=== PATIENT | male | born 1955 | race Caucasian/White ===

== ENCOUNTER 2017-09-12 18:56 | Emergency (ER) | payer BC ==
[2017-09-12 19:25] VITALS: BP 133/66
--- NOTE | 2017-09-12 19:30 | UC ---
Respiratory Complaint HPI - HPI Summary HPI Summary: Pt presents with 3 weeks of a dry cough and intermittent fevers. He has been taking dayquill and nyquill for his symptoms with mild relief at times. He has not taken his temperature, but says that he will wake up sweating in the middle of the night and feel cold. Over the last 3-4 days his cough has subsided and he thought he was getting better. Last week he only felt feverish for 2 days off and on. He is still working and is very active - plays tennis multiple times a week. He tells me that about 8 months ago, he had an W[place] and underwent cardiac cath with stent placement. He denies sore throat, sinus symptoms, cough , SOB, chest pain, palpitations, abdominal pain, n/v/d/c, fatigue, weakness, or body aches. - History of Current Complaint Chief Complaint: UCGeneralIllness Stated Complaint: FEVER, AND CHILLS Hx Obtained From: Patient Timing: Constant Pain Intensity: 0 Character: Cough: Nonproductive - Allergies/Home Medications Allergies/Adverse Reactions: Allergies Allergy/AdvReac Type Severity Reaction Status Date / Time No Known Allergies Allergy Verified 09/12/17 19:26 Home Medications: Home Medications Atorvastatin* [Lipitor*] 20 mg PO 1700 09/12/17 [History Confirmed 09/12/17] Clopidogrel TAB* [Plavix TAB*] 75 mg PO DAILY 09/12/17 [History Confirmed ] PMH/Surg Hx/FS Hx/Imm Hx Previously Healthy: Yes Endocrine History: Dyslipidemia Cardiovascular History: Myocardial Infarction - Surgical History Surgical History: None - Family History Known Family History: Positive: Cardiac Disease - Social History Occupation: Employed Full-time Lives: With Family Alcohol Use: Rare Substance Use Type: None Smoking Status (MU): Never Smoked Tobacco Review of Systems Constitutional: Fever Skin: Negative Eyes: Negative ENT: Negative Respiratory: Negative Cardiovascular: Negative Gastrointestinal: Negative Motor: Negative Neurovascular: Negative Musculoskeletal: Negative Neurological: Negative Psychological: Negative All Other Systems Reviewed And Are Negative: Yes Physical Exam Triage Information Reviewed: Yes Appearance: Well-Appearing, No Pain Distress, Well-Nourished Vital Signs: Initial Vital Signs Temp 101.1 F 09/12/17 19:20 Pulse 97 09/12/17 19:20 Resp 16 09/12/17 19:20 BP 133/66 09/12/17 19:20 Pulse Ox 100 09/12/17 19:20 Vital Signs Reviewed: Yes Eyes: Positive: Conjunctiva Clear. Negative: Conjunctiva Inflamed, Discharge ENT: Positive: Hearing grossly normal, Pharynx normal, TMs normal, Uvula midline. Negative: Pharyngeal erythema, Nasal congestion, Nasal drainage, TM bulging, TM dull, TM red, Tonsillar swelling, Tonsillar exudate, Hoarse voice, Sinus tenderness Neck: Positive: Supple, Nontender, No Lymphadenopathy Respiratory: Positive: Chest non-tender, Lungs clear, Normal breath sounds, No respiratory distress, No accessory muscle use Cardiovascular: Positive: RRR, No Murmur, Pulses Normal, Other: - No JVD or carotid bruit Abdomen Description: Positive: Nontender, No Organomegaly, Soft. Negative: Bruit, CVA Tenderness (R), CVA Tenderness (L), Distended, Guarding, Pulsatile Mass Bowel Sounds: Positive: Present Neurological: Positive: Alert. Negative: Fatigued Psychological: Positive: Age Appropriate Behavior Skin: Negative: rashes, significant lesion(s) UC Diagnostic Evaluation - Laboratory O2 Sat by Pulse Oximetry: 100 Respiratory Course/Dx - Course Course Of Treatment: POC flu negative. I suspect his fever could be from an unknown viral illness, but given his recent cardiac history - I spoke with Dr. Chase and we agreed to draw a CBC, CMP, and blood cultures. I will start him on an antibiotic to cover for potential infectious process and have him f/u with his PCP within 1 week. - Differential Dx/Diagnosis Provider Diagnoses: Fever. Cough Discharge - Discharge Plan Condition: Stable Disposition: HOME Prescriptions: Amoxicillin/Clavulanate TAB* [Augmentin TAB 875*] 875 mg PO BID #20 tab Patient Education Materials: Fever in Adults (ED) Referrals: No Primary Care Phys,NOPCP [Primary Care Provider] - Additional Instructions: If you develop a worsening fever, shortness of breath, chest pain, new or worsening symptoms - please call your PCP or go to the ED. Your blood pressure was high at todays visit. Please see your primary provider within 4 weeks for recheck and re-evaluation.
[2017-09-12] MEDS ORDERED: Amoxicillin/Clavulanate TAB* 875 MG PO ONE (20:43)
[2017-09-12] MEDS ORDERED: diPHENhydraMINE PO* 25 MG PO ONE (20:47)
== END 2017-09-12 21:10 | disposition home or self-care (01) ==
LOC: UCEAST 18:56
DX: R50.9 Fever, unspecified (principal); R05 Cough; R03.0 Elevated blood-pressure reading, without diagnosis of hypertension; I25.2 Old myocardial infarction; Z95.5 Presence of coronary angioplasty implant and graft; E78.5 Hyperlipidemia, unspecified
CPT/HCPCS: 87502; 99202; A9270-GY; G0463

== ENCOUNTER 2019-02-21 07:41 | Emergency (ER) | payer BC ==
--- OUTSIDE RECORDS SUMMARY | 2019-02-21 08:09 | XMS REPORT | Continuity of Care Document ---
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 Payers Date Identification Numbers Payment Provider Subscriber Effective: 2014 Policy Number: [id number] Dannielle Wasserman PayID: [id number] [address] [place] [id number] Problems Active Problems Provider Date Essential hypertension Juan David Iniguez M.D., Onset: 08/10/2018 [facility] Aortic valve disorder Juan David Iniguez M.D., Onset: 08/10/2018 [facility] 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., 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 angina [facility] pectoris Hyperlipidemia Juan David Iniguez M.D., Onset: 03/08/2017 [facility] Mixed hyperlipidemia Viridiana Gonzales, MSN, Onset: 05/03/2018 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 Social History Type Date Description Comments Sex Unknown Lives With Diet Inadequate intake of salt 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 Independent with all ADL's Tobacco Use Start: Unknown Never Smoked Cigarettes Smoking Status Reviewed: 02/16/19 Never Smoked Cigarettes ETOH Use Rarely consumes alcohol Allergies, Adverse Reactions, Alerts Active Allergies Reaction Severity Comments Date Amoxicillin swollen lip 08/10/2018 Inactive Allergies NKDA 03/08/2017 Medications Active Medications SIG Qnty Indications Ordering Provider Date Lipitor 1 by mouth every 90tabs E78.5 Gonzales, Viridiana 05/03/2018 80mg Tablets night at bedtime NICO Angulo, 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 INSTRU[employer] Losartan Potassium 1 by mouth every 90tabs I10 Gonzales, Viridiana 05/03/2018 50mg day NICO Angulo, Tablets 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 INSTRU[employer] Nitrostat 1 tab sl every 5 25tabs Gonzales, Viridiana 05/03/2018 0.4mg Tablets min x3 chest pain NICO Angulo, Sub 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 INSTRUCTOR Amlodipine Besylate 1 by mouth every 90tabs Juan David Iniguez 03/16/2018 5mg day Walter Lopez, [facility] Tablets Aspirin Adult Low 1 by mouth every Unknown Dose day 81mg Tablets DR Plavix 1 by mouth every 90tabs Juan David Iniguez 75mg Tablets day Walter Lopez, [facility] History Medications Lipitor 1 by mouth Unknown - 10mg Tablets every day 03/08/2017 Amlodipine Besylate 1 by mouth Unknown - 5mg every day Unknown Tablets Metoprolol Tartrate 1 by mouth Unknown - 25mg twice a day 03/08/2017 Tablets Lipitor tab by mouth 90tabs E78.5 Juan David Iniguez - 20mg Tablets every day Walter Lopez, [facility] 05/03/2018 Nitroglycerin apply 1 patch Unknown - 0.4mg/HR at dinner time Unknown Patches 24HR on for 12 hours and off for 12 hours Vital Signs Date Vital Result Comment 02/16/2019 9:39am BP Systolic Sitting Left Arm 130 mmHg BP Diastolic Sitting Left Arm 70 mmHg Heart Rate 64 /min Respiratory Rate 16 /min Height 70 inches 5'10" Weight 166.00 lb BMI (Body Mass Index) 23.8 kg/m2 BSA (Body Surface Area) 1.93 m2 [place] body weight in kilograms 75 kg O2 % BldC Oximetry 98 % Ejection Fraction 60% 08/10/2018 11:30am BP Systolic Sitting Left Arm 144 mmHg BP Diastolic Sitting Left Arm 88 mmHg Heart Rate 60 /min Respiratory Rate 18 /min Height 70 inches 5'10" Weight 170.00 lb BMI (Body Mass Index) 24.4 kg/m2 BSA (Body Surface Area) 1.95 m2 [place] body weight in kilograms 75 kg O2 % BldC Oximetry 98 % Ora 05/03/2018 2:14pm BP Systolic Sitting Right Arm 144 mmHg BP Diastolic Sitting Right Arm 82 mmHg Heart Rate 69 /min Respiratory Rate 16 /min Height 70 inches 5'10" Weight 165.00 lb BMI (Body Mass Index) 23.7 kg/m2 BSA (Body Surface Area) 1.92 m2 [place] body weight in kilograms 75 kg O2 % BldC Oximetry 98 % Room air 03/08/2018 8:59am BP Systolic Sitting Left Arm 118 mmHg BP Diastolic Sitting Left Arm 86 mmHg Heart Rate 68 /min Respiratory Rate 18 /min Height 70 inches 5'10" Weight 163.00 lb BMI (Body Mass Index) 23.4 kg/m2 BSA (Body Surface Area) 1.91 m2 [place] body weight in kilograms 75 kg O2 % BldC Oximetry 95 % 03/08/2017 1:04pm BP Systolic Sitting Right Arm 118 mmHg BP Diastolic Sitting Right Arm 62 mmHg Heart Rate 56 /min Respiratory Rate 16 /min Height 70 inches 5'10" Weight 161.00 lb BMI (Body Mass Index) 23.1 kg/m2 BSA (Body Surface Area) 1.90 m2 [place] body weight in kilograms 75 kg Results Test Date Facility Test Result H/L Range Note LDL Cholesterol 08/02/2018 [facility] Cholesterol 140 mg/dL <200 1, 2 Profile [address] [place], [place] [id number] [phone] Triglycerides 46 mg/dL <150 3 HDL Cholesterol 53 mg/dL >40 4 LDL-Cholesterol 78 mg/dL < 100 5 Comprehensive 08/02/2018 [facility] Glucose 93 mg/dL Normal 74-106 Metabolic Panel [address] [place], [place] [id number] [phone] BUN 20 mg/dL High 7-18 Creatinine 1.1 mg/dL Normal 0.6-1.3 Glom Filtration Rate, Estimate >60 mL/min >60 If >60 mL/min >60 6 BUN/Creat 18.1 ratio Sodium 138 mmol/L Normal 136-145 Potassium 4.1 mmol/L Normal 3.5-5.1 Chloride 106 mmol/L Normal 98-107 Carbon Dioxide 27 mmol/L Normal 21-32 Anion Gap 5 mEq/L Low 8-16 Calcium 8.3 mg/dL Low 8.5-10.1 Total Protein 7.4 g/dL Normal 6.4-8.2 Albumin 3.8 g/dL Normal 3.4-5.0 Globulin 3.6 g/dL Normal 1.9-4.3 Alb/Glob 1.1 ratio Bilirubin,Total 0.5 mg/dL Normal 0.2-1.0 Sgot/Ast 30 U/L Normal 15-37 SGPT/Alt 48 U/L Normal 12-78 Alkaline Phosphatase 71 U/L Normal 45-117 CBC W/Automated 08/02/2018 [facility] White Blood 4.7 K/uL Normal 3.4-10.[address] [place] [address] [phone] Red Blood Count 4.77 M/uL Normal 4.20-5.80 Hemoglobin 14.5 gm/dL Normal 12.8-17.0 Hematocrit 43.3 % Normal 38.0-48.0 Mean Cell Volume 90.8 fl Normal 80.0-96.0 Mean Corpuscular HGB 30.4 pg Normal 27.0-33.0 Mean Corpuscular HGB Conc 33.5 g/dL Normal 31.7-36.0 Platelet Count 244 K/uL Normal 155-360 Red Cell Distri Width SD 45.3 fl Normal 36-51 Red Cell Distri Width %CV 14.0 % Normal 11.6-15.8 Mean Platelet Volume 9.6 fL Normal 6.6-10.6 Neut% 57.9 % Normal 33.0-73.0 Lymph % 29.0 % Normal 20.0-42.0 [place] % 9.2 % Normal 0.0-10.0 Eo% 3.7 % Normal 0.0-6.6 Bas% 0.2 % Normal 0.0-1.1 Neut# 2.69 K/uL Normal 1.8-7.0 Lymph # 1.35 K/uL Normal 1.0-4.0 [place] # 0.43 K/uL Normal 0.0-0.8 Eos # 0.17 K/uL Normal 0.0-0.5 Baso # 0.01 K/uL Normal 0.0-0.1 LDL Cholesterol 03/28/2018 [facility] Cholesterol 176 mg/dL <200 7, [address] [place] [address] [phone] Triglycerides 125 mg/dL <150 9 HDL Cholesterol 47 mg/dL >40 10 LDL-Cholesterol 104 mg/dL < 100 11 Reflex add FT3? Y Reflex add FT4? Y TSH Reflex 03/28/2018 [facility] Thyroid Stim 1.68 uIU/mL Normal 0.30-4.20 FT4 And/Or [address] Hormone FT3 [place] [address] [phone] Reflex add FT3? Y Reflex add FT4? Y Basic Metabolic Panel - Daily 02/23/2017 N2N/CCD Import Anion Gap 8 mmol/L 7 - 16 BUN/Creatinine Ratio 15.8 Ratio 10.0 - 20.0 Calcium 8.3 mg/dL Low 8.4 - 10.2 Chloride 104 mmol/L 100 - 108 Co2 26 mmol/L 22 - 31 Creatinine 1.01 mg/dL 0.80 - 1.30 GFR MDRD Af Amer >60 >59 ml/min/1.73m2 GFR MDRD Non Af Amer >60 >59 ml/min/1.73m2 Glom Filt Rate, Est See Notes Glucose 99 mg/dL 70 - 99 Potassium 4.3 mmol/L 3.6 - 5.2 Sodium 138 mmol/L 136 - 145 Urea nitrogen 16 mg/dL 7 - 24 Troponin I 02/23/2017 N2N/CCD Import Troponin I 34.80 ng/mL Critical high 0.00 - 0.10 CBC - Daily 02/23/2017 N2N/CCD Import Hematocrit 41.1 % 41.0 - 53.0 Hemoglobin 14.1 g/dL 13.5 - 18.0 MCH 31.4 pg 27.0 - 32.0 MCHC 34.4 g/dL 32.0 - 36.0 MCV 91.3 fL 80.0 - 95.0 MPV 7.8 fL 7.1 - 10.7 Platelets 252 10*3/uL 150 - 450 RBC 4.51 10*6/uL Low 4.60 - 6.10 RDW 13.7 % 10.5 - 14.5 WBC 7.5 10*3/uL 4.1 - 11.0 aPTT 02/21/2017 N2N/CCD Import aPTT 24.9 s 22.0 - 32.6 Protime-Inr 02/21/2017 N2N/CCD Import Inr 1.08 1 Protime 11.2 s 9.2 - 11.9 Magnesium 02/21/2017 N2N/CCD Import Magnesium 2.1 mg/dL 1.7 - 2.4 Lipid panel 02/21/2017 N2N/CCD Import Chol/HDL Ratio 4.5 Ratio Cholesterol 215 mg/dL High 0 - 200 HDL 48 mg/dL >40 LDL Calculated 154 mg/dL High <130 Triglycerides 64 mg/dL 30 - 200 Lipase 02/21/2017 N2N/CCD Import Lipase 78 U/L 65 - 230 Comprehensive 02/21/2017 N2N/CCD Import Alb/Glob ratio 1.2 Ratio metabolic panel Albumin 3.7 g/dL 3.2 - 4.5 Alkaline Phosphatase 54 U/L 45 - 117 Alt 30 U/L 12 - 78 Anion Gap 11 mmol/L 7 - 16 Ast 34 U/L 11 - 39 BUN/Creatinine Ratio 21.3 Ratio High 10.0 - 20.0 Bilirubin, Total 0.7 mg/dL 0.0 - 1.0 Calcium 8.6 mg/dL 8.4 - 10.2 Chloride 106 mmol/L 100 - 108 Co2 23 mmol/L 22 - 31 Creatinine 0.94 mg/dL 0.80 - 1.30 GFR MDRD Af Amer >60 >59 ml/min/1.73m2 GFR MDRD Non Af Amer >60 >59 ml/min/1.73m2 Globulin 3.0 g/dL 2.7 - 4.3 Glom Filt Rate, Est See Notes Glucose 152 mg/dL High 70 - 99 Potassium 4.0 mmol/L 3.6 - 5.2 Protein, Total 6.7 g/dL 6.4 - 8.2 Sodium 140 mmol/L 136 - 145 Urea nitrogen 20 mg/dL 7 - 24 CBC and 02/21/2017 N2N/CCD Import Basophils 0.0 10*3/uL 0.0 - 0.2 differential Absolute Basophils Relative 0.3 % 0.0 - 4.0 Eosinophils Absolute 0.0 10*3/uL 0.0 - 0.5 Eosinophils Relative 0.1 % 0.0 - 5.0 Hematocrit 40.9 % Low 41.0 - 53.0 Hemoglobin 13.8 g/dL 13.5 - 18.0 Lymphocytes Absolute 0.6 10*3/uL Low 1.2 - 4.8 Lymphocytes Relative 5.9 % Low 16.0 - 52.0 MCH 30.5 pg 27.0 - 32.0 MCHC 33.9 g/dL 32.0 - 36.0 MCV 90.2 fL 80.0 - 95.0 MPV 7.5 fL 7.1 - 10.7 Monocytes Absolute 0.5 10*3/uL 0.0 - 0.8 Monocytes Relative 4.6 % 0.0 - 8.0 Neutrophils % 89.1 % High 35.0 - 75.0 Neutrophils Absolute 9.7 10*3/uL High 1.8 - 7.7 Platelets 258 10*3/uL 150 - 450 RBC 4.53 10*6/uL Low 4.60 - 6.10 RDW 13.3 % 10.5 - 14.5 WBC 10.9 10*3/uL 4.1 - 11.0 1 E78.5 I10 I25.10 2 Reference Guidelines*: Desirable: ........... < 200 mg/dL Borderline High: ..... 200-239 mg/dL High: ................ >=240 mg/dL * The National Cholesterol Education Program (NCEP) 3 Reference Guidelines*: Normal: ............. < 150 mg/dL Borderline High: .... 150-199 mg/dL High: ............... 200-499 mg/dL Very High: .......... > 500 mg/dL * Source: National Cholesterol Education Program (NCEP) 4 Reference Guidelines*: Low HDL: ..... < 40 mg/dL Normal: ..... 40-60 mg/dL Desirable: ... > 60 mg/dL *The National Cholesterol Education Program(NCEP) 5 Reference Guidelines*: Optimal:........... <100 mg/dL Near Optimal....... 100-129 mg/dL Borderline High.... 130-159 mg/dL High............... 160-189 mg/dL Very High.......... >=190 mg/dL * Source: National Cholesterol Education Program (NCEP) 6 Note: Persistent reduction for 3 months or more in an eGFR <60 mL/min/1.73 m2 defines CKD. Patients with eGFR values >/=60 mL/min/1.73 m2 may also have CKD if evidence of persistent proteinuria is present. The original MDRD equation for estimated GFR is not valid for patients less than 18 years of age. Additional information may be found at www.kdoqi.org. 7 E78.5,I25.10 8 Reference Guidelines*: Desirable: ........... < 200 mg/dL Borderline High: ..... 200-239 mg/dL High: ................ >=240 mg/dL * The National Cholesterol Education Program (NCEP) 9 Reference Guidelines*: Normal: ............. < 150 mg/dL Borderline High: .... 150-199 mg/dL High: ............... 200-499 mg/dL Very High: .......... > 500 mg/dL * Source: National Cholesterol Education Program (NCEP) 10 Reference Guidelines*: Low HDL: ..... < 40 mg/dL Normal: ..... 40-60 mg/dL Desirable: ... > 60 mg/dL *The National Cholesterol Education Program(NCEP) 11 Reference Guidelines*: Optimal:........... <100 mg/dL Near Optimal....... 100-129 mg/dL Borderline High.... 130-159 mg/dL High............... 160-189 mg/dL Very High.......... >=190 mg/dL * Source: National Cholesterol Education Program (NCEP) Procedures Date Code Description Status 01/12/2019 10256 Echocardiogram Complete Completed 05/03/2018 83798 EKG-Tracing And Report Completed 03/16/2018 04006 ECHO Transthoracic Inc Performance Continuous Completed Electrocardio 03/08/2018 10584 EKG-Tracing And Report Completed 03/16/2017 79996 Echocardiogram Complete Completed 03/08/2017 10431 EKG-Tracing And Report Completed Encounters Type Date Location Provider Dx Diagnosis Office Visit 02/16/2019 Cardiology Office Juan David Iniguez I35.0 Nonrheumatic aortic 9:40a Walter Lopez, FACC (valve) stenosis I25.10 [facility] disease of [place] coronary artery w/o ang pctrs E78.5 Hyperlipidemia, unspecified I10 Essential (primary) hypertension Office Visit 08/10/2018 11:20a Cardiology Office Juan David Iniguez I25.10 [facility] Walter Lopez, FACC disease of [place] coronary artery w/o ang pctrs I35.0 Nonrheumatic aortic (valve) stenosis E78.5 Hyperlipidemia, unspecified I10 Essential (primary) hypertension Office Visit 05/03/2018 2:20p Cardiology Office Viridiana Gonzales I25.10 [facility] Adele, NICO, 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 [place] coronary artery w/o ang pctrs I35.0 Nonrheumatic aortic (valve) stenosis E78.5 Hyperlipidemia, unspecified I10 Essential (primary) hypertension Office Visit 03/08/2018 9:00a Cardiology Office Viridiana Gonzales I25.10 [facility] NICO Angulo, 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 [place] coronary artery w/o ang pctrs E78.5 Hyperlipidemia, unspecified I35.0 Nonrheumatic aortic (valve) stenosis Office Visit 03/08/2017 1:00p Cardiology Office Juan David Inigue[facility] Walter Lopez, FACC disease of [place] coronary artery w/o ang pctrs E78.5 Hyperlipidemia, unspecified Plan of Treatment Future Appointment(s):08/20/2019 9:00 am - Viridiana Gonzales, NICO, 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 INSTRUCTOR at Cardiology [id number]/16/2019 - Juan David Iniguez M.D., FACCI35.0 Nonrheumatic aortic (valve) stenosisNew Orders:Echocardiogram, Ordered: 02/16/19Comments: Mild to moderate. Since he is young he is likely to progress and require SAVR or TAVR. Will have echo in 6 months.I25.10 Atherosclerotic heart disease of [place] coronary artery withComments:No symptoms after stenting. Will continue DAPT for undetermined amount of time based on the new trials that show better outcome with DAPT even after the year from the stenting.E78.5 Hyperlipidemia, unspecifiedComments:On statin. Last LDL Jul 2018 was 78I10 Essential (primary) hypertensionComments:BP goal is < 130/80 mmHg. Controlled. No changesAllFollow up:Follow up visit in 6 months.
[2019-02-21 08:17] VITALS: BP 142/68
--- NOTE | 2019-02-21 08:29 | UC ---
Skin Complaint HPI - HPI Summary HPI Summary: 63 yo male hit right lower leg with truck door 2 weeks ago resulting in hematoma one week ago bee sting in same area now here for evaluation of red rash lower leg on plavix - History of Current Complaint Chief Complaint: UCSkin Time Seen by Provider: 02/21/19 08:20 Stated Complaint: RT LEG SKIN COMPLAINT Hx Obtained From: Patient Onset/Duration: Sudden Onset, Lasting Weeks Skin Exposure Onset/Duration: Minutes Ago Onset Severity: Mild Current Severity: None Pain Intensity: 0 Pain Scale Used: 0-10 Numeric Location: Discrete Character: Redness Aggravating Factor(s): Nothing Alleviating Factor(s): Nothing Associated Signs & Symptoms: Positive: Negative Related History: Trauma - it did break skin - Allergy/Home Medications Allergies/Adverse Reactions: Allergies Allergy/AdvReac Type Severity Reaction Status Date / Time amoxicillin [From Augmentin] Allergy Swelling Verified 02/21/19 08:18 Of Face,Lips,& Throat clavulanic acid Allergy Swelling Verified 02/21/19 08:18 [From Augmentin] Of Face,Lips,& Throat Home Medications: Home Medications Amlodipine Besylate [Norvasc] 5 mg PO DAILY 02/21/19 [History Confirmed 02/21/19 ] Aspirin 81 mg CHEW TAB* [Aspirin Low Dose TAB*] 81 mg PO DAILY 02/21/19 [ History Confirmed 02/21/19] Losartan Potassium [Cozaar] 50 mg PO DAILY 02/21/19 [History Confirmed 02/21/19] PMH/Surg Hx/FS Hx/Imm Hx Previously Healthy: Yes Cardiovascular History: Hypertension, Myocardial Infarction - Surgical History Surgical History: None Surgery Procedure, Year, and Place: Stents - Family History Known Family History: Positive: Cardiac Disease, Hypertension - Social History Alcohol Use: Occasionally Substance Use Type: None Smoking Status (MU): Never Smoked Tobacco Review of Systems All Other Systems Reviewed And Are Negative: Yes Constitutional: Positive: Negative Skin: Positive: Rash Eyes: Positive: Negative ENT: Positive: Negative Respiratory: Positive: Negative Cardiovascular: Positive: Negative Gastrointestinal: Positive: Negative Genitourinary: Positive: Negative Motor: Positive: Negative Neurovascular: Positive: Negative Musculoskeletal: Positive: Negative Neurological: Positive: Negative Psychological: Positive: Negative Physical Exam Triage Information Reviewed: Yes Appearance: Well-Appearing, No Pain Distress, Well-Nourished Vital Signs: Initial Vital Signs Temp 97.4 F 02/21/19 08:11 Pulse 55 02/21/19 08:11 Resp 16 02/21/19 08:11 BP 142/68 02/21/19 08:11 Pulse Ox 100 02/21/19 08:11 Vital Signs Reviewed: Yes Eyes: Positive: Conjunctiva Clear ENT: Positive: Hearing grossly normal. Negative: Nasal congestion, Nasal drainage, Trismus, Muffled voice, Hoarse voice Dental Exam: Normal Neck: Positive: Supple, Nontender Respiratory: Positive: Lungs clear, Normal breath sounds, No respiratory distress Cardiovascular: Positive: RRR, No Murmur Musculoskeletal: Positive: Other: - see image Neurological: Positive: Alert Skin: Positive: Other - see image Images Front/Back of Body, Lg (Barren): 1 - hematoma 2 - erythema Course/Dx - Course Course Of Treatment: this may be due to resolving hematoma however due to break in skin will cover for cellulitis had angioedema in past with augmentin - Diagnoses Provider Diagnosis: Traumatic hematoma of right lower leg, Cellulitis of right leg without foot Discharge - Sign-Out/Discharge Documenting (check all that apply): Patient Departure All imaging exams completed and their final reports reviewed: No Studies - Discharge Plan Condition: Stable Disposition: HOME Prescriptions: DOXYcycline CAP(*) [DOXYcycline 100MG CAP(*)] 100 mg PO BID #14 cap Patient Education Materials: Cellulitis (ED) Referrals: No Primary Care Phys,NOPCP [Primary Care Provider] - Additional Instructions: take doxy with meal - Billing Disposition and Condition Condition: STABLE Disposition: Home
== END 2019-02-21 08:35 | disposition home or self-care (01) ==
LOC: UCCORT 07:41
DX: S80.11XA Contusion of right lower leg, initial encounter (principal); W22.8XXA Striking against or struck by other objects, initial encounter; Y92.9 Unspecified place or not applicable; I25.2 Old myocardial infarction; L03.115 Cellulitis of right lower limb; I10 Essential (primary) hypertension
CPT/HCPCS: 99212; G0463